=== PATIENT | male | born 1990 | race Caucasian/White ===

== ENCOUNTER → 2016-09-11 | Outpatient (CLI) | payer BC ==
[2016-09-12 16:19] LABS: TESTOSTERONE, TOTAL 449 ng/dL (240-871)
[2016-09-15 20:02] LABS: EBV CAPSID IGG QUANTITATIVE 4.64 OD Ratio (<0.91); EBV CAPSID IGM QUANTITATIVE 0.44 OD Ratio (<0.91); EBV EARLY ANTIGEN IGG Negative (()); EBV EARLY IGG QUANTITATIVE 0.13 OD Ratio (<0.91); EBV IGM AB Negative (()); EPSTEIN-BARR VIRUS VCA-IgG Positive (())
== END ==
LOC: COL.LAB 15:56
PROVIDERS: Nurse Practitioner Family
DX: R61 Generalized hyperhidrosis (principal); R53.83 Other fatigue

== ENCOUNTER → 2016-12-24 | Outpatient (CLI) | payer BC | LOC: BHSO 10:45 | DX: F41.1 Generalized anxiety disorder (principal) | CPT/HCPCS: 90791-AI ==

== ENCOUNTER → 2017-02-05 | Outpatient (CLI) | payer BC | LOC: BHSO 15:17 | DX: F41.1 Generalized anxiety disorder (principal) ==

== ENCOUNTER → 2017-05-24 | Outpatient (CLI) | payer BC | LOC: BHSO 15:02 | DX: F41.1 Generalized anxiety disorder (principal) ==

== ENCOUNTER → 2018-04-01 | Outpatient (CLI) | payer BC | LOC: BHSO 10:13 | DX: F41.1 Generalized anxiety disorder (principal) | CPT/HCPCS: G0463 ==

== ENCOUNTER → 2018-12-21 | Outpatient (CLI) | payer BC | LOC: BHSO 08:10 | DX: F41.1 Generalized anxiety disorder (principal) | CPT/HCPCS: G0463 ==